=== PATIENT | female | born 1990 | race Caucasian/White ===

== ENCOUNTER 2018-12-24 17:40 | Inpatient (IN) | payer OTHER ==
[~2018-12-24] VITALS: Ht 152.4 cm; Wt 82.1 kg
[2018-12-24] MEDS ORDERED: RINGERS SOLUTION,LACTATED 1,000 ML IV PRN (17:48)
[2018-12-24] MEDS ORDERED: OXYTOCIN 30 UNITS/LACT RINGERS 500 ML IV ONE (17:48)
[2018-12-24] MEDS ORDERED: LIDOCAINE/PF 1% 30 ML VIAL INJ PRN (18:00)
[2018-12-24] MEDS ORDERED: METHYLERGONOVINE MALEATE 0.2 MG/ML VIAL IM PRN (18:00)
[2018-12-24] MEDS ORDERED: CITRIC ACID/SODIUM CITRATE 30 ML SOLUTION UDCUP PO PRN (18:00)
[2018-12-24] MEDS ORDERED: METOCLOPRAMIDE HCL 5 MG/ML 2 ML VIAL IVP PRN (18:00)
[2018-12-24] MEDS ORDERED: PNV1TABL54 PO (18:12)
[2018-12-24] MEDS: RINGERS SOLUTION,LACTATED 1,000 ML IV SCH (18:29)
[2018-12-24 19:20] LABS: BASOPHILS % (AUTO) 0.1 % (0.0-2.0); EOSINOPHILS % (AUTO) 0.4 % (1.0-6.0); HEMATOCRIT 36.5 % (36-46); HEMOGLOBIN 12.5 g/dL (12.0-16.0); LYMPHOCYTES % (AUTO) 22.9 % (22.0-44.0); MEAN CORPUSCULAR HEMOGLOBIN 30.8 pg (26.0-34.0); MEAN CORPUSCULAR HGB CONC 34.4 G/dL (31.0-37.0); MEAN CORPUSCULAR VOLUME 90 fL (80-100); MONOCYTES # (AUTO) 0.6 K/uL (0.1-1.0); MONOCYTES % (AUTO) 6.8 % (2.0-9.0); NEUTROPHILS # (AUTO) 6.1 K/uL (1.8-7.7); NEUTROPHILS % (AUTO) 69.8 % (40.0-70.0); PLATELET COUNT (AUTO) 157 K/uL (150-450); RED BLOOD CELL COUNT(AUTO) 4.07 MIL/uL (4.00-5.20); RED CELL DISTRIBUTION WIDTH 14.6 % (11.5-14.5)
[2018-12-24] MEDS ORDERED: OXYGEN THERAPY IH SCH (20:00)
[2018-12-24] MEDS ORDERED: OXYTOCIN 30 UNITS/LACT RINGERS 500 ML IV PRN (21:47)
[2018-12-25] MEDS: RINGERS SOLUTION,LACTATED 1,000 ML IV SCH ×3 (02:20→21:03)
[2018-12-25] MEDS ORDERED: AMPICILLIN SODIUM 2 GM/NS 100 ML IV ONE (07:45)
[2018-12-25] MEDS ORDERED: DiphenhydrAMINE HCL 50 MG/ML VIAL IVP PRN ×3 (10:00→16:15)
[2018-12-25] MEDS ORDERED: NALBUPHINE HCL 10 MG/ML VIAL IVP PRN ×4 (10:00→16:15)
[2018-12-25] MEDS ORDERED: ROPIVACAINE HCL/PF 0.2% 100 ML ED PRN (10:00)
[2018-12-25] MEDS ORDERED: ONDANSETRON HCL 4 MG/2 ML VIAL IVP PRN ×3 (10:00→16:15)
[2018-12-25] MEDS ORDERED: AMPICILLIN SODIUM 1 GM/NS 50 ML IV SCH (11:45)
[2018-12-25] MEDS ORDERED: OXYTOCIN 10 UNITS/ML VIAL IM ONE (12:00)
[2018-12-25] MEDS ORDERED: LIDOCAINE/PF 2% 5 ML VIAL ONE ×2 (13:39→15:32)
[2018-12-25] MEDS ORDERED: ROPIVACAINE HCL/PF 0.2% 100 ML ED ONE (13:39)
[2018-12-25] MEDS ORDERED: CITRIC ACID/SODIUM CITRATE 30 ML SOLUTION UDCUP PO ONE (14:30)
[2018-12-25] MEDS ORDERED: METOCLOPRAMIDE HCL 5 MG/ML 2 ML VIAL IVP ONE (14:30)
[2018-12-25] MEDS ORDERED: GUM MASTIC/STORAX/MSAL/ALCOHOL LIQUID 0.67 ML VIAL TP ONE (15:11)
[2018-12-25] MEDS ORDERED: MORPHINE SULFATE/PF 0.5 MG/ML 10 ML AMP ONE (15:32)
[2018-12-25] MEDS ORDERED: ACETAMINOPHEN 1000 MG/ISO-OSM 100 ML IV ONE (15:32)
[2018-12-25] MEDS ORDERED: FentaNYL CITRATE-PF 100 MCG/2 ML VIAL ONE (15:32)
[2018-12-25] MEDS ORDERED: MISOPROSTOL 100 MCG TABLET ONE (16:06)
[2018-12-25] MEDS ORDERED: DEXAMETHASONE SOD PHOS 4 MG/ML VIAL IVP PRN (16:15)
[2018-12-25] MEDS ORDERED: NALOXONE HCL 0.4 MG/ML VIAL IVP PRN (16:15)
[2018-12-25] MEDS ORDERED: MORPHINE SULFATE 10 MG/ML SYRINGE IVP PRN ×2 (16:15)
[2018-12-25] MEDS ORDERED: METHYLERGONOVINE MALEATE 0.2 MG/ML VIAL IM ONE (16:15)
[2018-12-25] MEDS ORDERED: FentaNYL CITRATE-PF 100 MCG/2 ML VIAL IVP PRN ×2 (16:15)
[2018-12-25] MEDS ORDERED: MORPHINE SULFATE 2 MG/ML SYRINGE IVP PRN ×2 (16:15)
[2018-12-25] MEDS ORDERED: MISOPROSTOL 100 MCG TABLET PR ONE (16:15)
[2018-12-25] MEDS ORDERED: OXYTOCIN 30 UNITS/LACT RINGERS 500 ML IV ONE (18:05)
[2018-12-25] MEDS ORDERED: LANOLIN 7 GM OINTMENT TP PRN (18:15)
[2018-12-25] MEDS ORDERED: OXYGEN THERAPY IH SCH ×3 (20:00)
[2018-12-25] MEDS: MAGNESIUM HYDROXIDE SUSPENSION 30 ML UDCUP PO SCH (21:03)
[2018-12-25] MEDS: ACETAMINOPHEN 1000 MG/ISO-OSM 100 ML IV SCH (23:37)
[2018-12-26] MEDS: RINGERS SOLUTION,LACTATED 1,000 ML IV SCH (04:02)
[2018-12-26 06:33] LABS: BASOPHILS % (AUTO) 0.2 % (0.0-2.0); EOSINOPHILS % (AUTO) 0.1 % (1.0-6.0); HEMATOCRIT 29.5 % (36-46); HEMOGLOBIN 9.9 g/dL (12.0-16.0); LYMPHOCYTES # (AUTO) 1.2 K/uL (1.0-4.8); LYMPHOCYTES % (AUTO) 14.7 % (22.0-44.0); MEAN CORPUSCULAR HEMOGLOBIN 30.6 pg (26.0-34.0); MEAN CORPUSCULAR HGB CONC 33.7 G/dL (31.0-37.0); MEAN CORPUSCULAR VOLUME 91 fL (80-100); MONOCYTES # (AUTO) 0.6 K/uL (0.1-1.0); MONOCYTES % (AUTO) 7.1 % (2.0-9.0); NEUTROPHILS # (AUTO) 6.6 K/uL (1.8-7.7); NEUTROPHILS % (AUTO) 77.9 % (40.0-70.0); PLATELET COUNT (AUTO)-OB 128 K/uL (150-450); RED BLOOD CELL COUNT(AUTO) 3.25 MIL/uL (4.00-5.20); RED CELL DISTRIBUTION WIDTH 14.4 % (11.5-14.5)
[2018-12-26] MEDS: ACETAMINOPHEN 1000 MG/ISO-OSM 100 ML IV SCH (06:34)
[2018-12-26] MEDS: MAGNESIUM HYDROXIDE SUSPENSION 30 ML UDCUP PO SCH ×2 (10:44→23:12)
[2018-12-26] MEDS: OxyCODONE HCL/ACETAMINOPHEN 5-325 MG TABLET PO PRN ×2 (14:36→18:41)
[2018-12-26] MEDS: IBUPROFEN 800 MG TABLET PO PRN (18:41)
[2018-12-26 19:48] VITALS: BP 108/71
[2018-12-27] MEDS: IBUPROFEN 800 MG TABLET PO PRN ×3 (02:39→16:25)
[2018-12-27] MEDS: OxyCODONE HCL/ACETAMINOPHEN 5-325 MG TABLET PO PRN ×3 (02:40→16:25)
[2018-12-27] MEDS ORDERED: SENNA/DOCUSATE SODIUM 8.6-50 MG TABLET PO ONE (08:15)
[2018-12-27] MEDS ORDERED: BISACODYL 10 MG RECTAL RECTAL SUPPOSITORY PR ONE (08:15)
[2018-12-27] MEDS: MAGNESIUM HYDROXIDE SUSPENSION 30 ML UDCUP PO SCH ×2 (08:57→21:00)
[2018-12-28] MEDS: IBUPROFEN 800 MG TABLET PO PRN (06:38)
[2018-12-28] MEDS ORDERED: IBUP-2071 PO (17:47)
[2018-12-28] MEDS ORDERED: ACET-2744 PO (17:52)
[2018-12-28] MEDS ORDERED: FERR-82 PO (17:54)
[2018-12-28] MEDS ORDERED: MUPI1OIN4 NS (17:57)
== END 2018-12-28 18:19 | disposition home or self-care (01) | DRG 540 ==
LOC: OBSVTOIN 17:44 → 4S 17:44
PROVIDERS: ADMIT Obstetrics & Gynecology; ATTEND Obstetrics & Gynecology
PROC: 10D00Z1 Extraction of Products of Conception, Low, Open Approach (ICD-10-PCS; principal; 2018-12-25)
DX: O61.9 Failed induction of labor, unspecified (principal); Z37.0 Single live birth; Z3A.41 41 weeks gestation of pregnancy
CPT/HCPCS: 76805; 86850; 86900; 86901; 87081; J0131; J0290; J2274; J2590; J2765; J2795; J3010; J3490; J7120